=== PATIENT | female | born 1940 | race Caucasian/White ===

== ENCOUNTER 2023-10-31 18:01 | Inpatient (IN) | payer MEDICARE, SELFPAY ==
[~2023-10-31] VITALS: Ht 157.5 cm; Wt 36.0 kg
[2023-10-31 21:10] VITALS: BP 115/57; TEMP 98.8; O2SAT 91
[2023-10-31 21:56] LABS: BASO % 0.1 % (0.0-1.0); HEMATOCRIT 24.2 % (36.0-47.0); HEMOGLOBIN 8.6 g/dl (12.0-15.5); LYMPH # 0.3 10^3/uL (1.5-5.0); MEAN CORPUSCULAR HEMOGLOBIN 35.7 pg (27.0-33.0); MEAN CORPUSCULAR HGB CONC 35.5 g/dl (32.0-36.5); MEAN CORPUSCULAR VOLUME 100.4 fl (80.0-96.0); MONO # 0.3 10^3/uL (0.0-0.8); MONO % 4.2 % (2.0-8.0); NEUTROPHILS # 7.4 10^3/uL (1.5-8.5); NEUTROPHILS % 91.3 % (36.0-66.0); PLATELET COUNT, AUTOMATED 129 10^3/uL (150-450); RED BLOOD COUNT 2.41 10^6/uL (4.00-5.40); WHITE BLOOD COUNT 8.1 10^3/uL (4.0-10.0)
[2023-10-31 22:05] LABS: INR 1.29; PROTHROMBIN TIME 15.7 SECONDS (12.5-14.5)
[2023-10-31 22:18] LABS: ALBUMIN 1.9 G/DL (3.2-5.2); ALKALINE PHOSPHATASE 200 U/L (46-116); ALT/SGPT 23 U/L (7.0-40); AST/SGOT 37 U/L (<34); BILIRUBIN,TOTAL 0.5 MG/DL (0.3-1.2); BLOOD UREA NITROGEN 13 MG/DL (9-23); CALCIUM LEVEL 7.9 MG/DL (8.3-10.6); CARBON DIOXIDE LEVEL > 40.0 MMOL/L (20-31); CHLORIDE LEVEL 74 MMOL/L (98-107); GLOMERULAR FILTRATION RATE > 60.0 (>32); GLUCOSE, FASTING 118 MG/DL (74-106); POTASSIUM SERUM 3.2 MMOL/L (3.5-5.1); SODIUM LEVEL 121 MMOL/L (136-145); TOTAL PROTEIN 5.1 G/DL (5.7-8.2)
[2023-10-31 23:00] VITALS: BP 137/62; TEMP 98.1; O2SAT 99
[2023-10-31 23:10] VITALS: O2SAT 90
[2023-10-31] MEDS ORDERED: NS 1,000 ML IV SCH (23:40)
[2023-11-01] MEDS ORDERED: UNRESOLVED CLARIFICATION ENTRY XX STA (00:03)
[2023-11-01] MEDS ORDERED: ALBUTEROL SULFATE 2.5MG/0.5ML INH NEB SOLN NEB PRN (00:20)
[2023-11-01 00:33] LABS: MAGNESIUM LEVEL 1.4 MG/DL (1.8-2.4)
[2023-11-01] MEDS: SODIUM CHLORIDE HYPERTONIC 3% 4ML NEB SOL INH SCH ×4 (01:31→20:17)
[2023-11-01] MEDS: IPRATROPIUM 0.5MG/ALBUTEROL 2.5MG INH SOL UD 3ML (DUONEB) NEB SCH ×2 (01:31→07:59)
[2023-11-01] MEDS ORDERED: MAG SULF 1GM/100ML (MAG RUN) 1 GM in IV 1 EA IV ONE (02:00)
[2023-11-01] MEDS ORDERED: POTASSIUM CHLORIDE 10MEQ SR TABLET PO ONE ×2 (03:00)
[2023-11-01 03:11] VITALS: BP 123/59; TEMP 98.5; O2SAT 97
[2023-11-01 04:28] LABS: HEMATOCRIT 23.6 % (36.0-47.0); HEMOGLOBIN 8.4 g/dl (12.0-15.5); MEAN CORPUSCULAR HEMOGLOBIN 35.9 pg (27.0-33.0); MEAN CORPUSCULAR HGB CONC 35.6 g/dl (32.0-36.5); MEAN CORPUSCULAR VOLUME 100.9 fl (80.0-96.0); PLATELET COUNT, AUTOMATED 136 10^3/uL (150-450); RED BLOOD COUNT 2.34 10^6/uL (4.00-5.40); WHITE BLOOD COUNT 10.2 10^3/uL (4.0-10.0)
[2023-11-01 04:54] LABS: FERRITIN 259.3 NG/ML (7.3-270.7)
[2023-11-01 04:55] LABS: FOLATE > 24.00 NG/ML (>5.4)
[2023-11-01 05:04] LABS: PROCALCITONIN 0.16 ng/ml
[2023-11-01 05:07] LABS: BLOOD UREA NITROGEN 11 MG/DL (9-23); CALCIUM LEVEL 7.5 MG/DL (8.3-10.6); CARBON DIOXIDE LEVEL > 40.0 MMOL/L (20-31); CHLORIDE LEVEL 75 MMOL/L (98-107); GLOMERULAR FILTRATION RATE > 60.0 (>32); GLUCOSE, FASTING 96 MG/DL (74-106); MAGNESIUM LEVEL 1.9 MG/DL (1.8-2.4); POTASSIUM SERUM 3.6 MMOL/L (3.5-5.1); SODIUM LEVEL 120 MMOL/L (136-145); VITAMIN B12 LEVEL > 2000 PG/ML (211-911)
[2023-11-01] MEDS ORDERED: LevoFLOXacin IV 750 MG in IV 1 EA IV SCH (06:00)
[2023-11-01] MEDS ORDERED: MIRT-10 PO (06:43)
[2023-11-01] MEDS ORDERED: IPRA0.00 NEB (06:43)
[2023-11-01] MEDS ORDERED: COMBAER6 PO (06:43)
[2023-11-01] MEDS ORDERED: MECL-86 PO (06:43)
[2023-11-01] MEDS ORDERED: PRED5TA PO (06:43)
[2023-11-01] MEDS ORDERED: TRIA37.577 PO (06:43)
[2023-11-01] MEDS ORDERED: LEVO1TAB40 PO (06:43)
[2023-11-01] MEDS ORDERED: PANT40TA29 PO (06:43)
[2023-11-01] MEDS ORDERED: HOME MED LIST COMPLETE! XX SCH (06:45)
[2023-11-01 08:00] VITALS: BP 103/52; TEMP 98.6; O2SAT 90
[2023-11-01 08:21] LABS: OSMOLALITY SERUM 247 MOSM/KG (280-301)
[2023-11-01 08:34] LABS: CORTISOL BASELINE 26.1 UG/DL (4.3-22.4)
[2023-11-01 08:37] LABS: THYROID STIMULATING HORMONE 6.974 uIU/ML (0.55-4.78)
[2023-11-01 08:48] LABS: ABG BASE EXCESS 20.9 (-2.0-2.0); ABG HCO3 45.5 MMOL/L (22.0-26.0); ABG PARTIAL PRESSURE CO2 50.8 mmHg (35.0-45.0); ABG PARTIAL PRESSURE O2 58.4 mmHg (75.0-100.0); ABG TOTAL CO2 47.1 MMOL/L (23.0-31.0)
[2023-11-01 08:53] LABS: BLOOD UREA NITROGEN 13 MG/DL (9-23); CALCIUM LEVEL 7.4 MG/DL (8.3-10.6); CARBON DIOXIDE LEVEL > 40.0 MMOL/L (20-31); CHLORIDE LEVEL 77 MMOL/L (98-107); CREATININE FOR GFR 0.38 MG/DL (0.55-1.30); GLOMERULAR FILTRATION RATE > 60.0 (>32); GLUCOSE, FASTING 81 MG/DL (74-106); POTASSIUM SERUM 3.8 MMOL/L (3.5-5.1); SODIUM LEVEL 122 MMOL/L (136-145)
[2023-11-01] MEDS ORDERED: PANTOPRAZOLE 40MG TAB (PROTONIX) PO SCH (09:00)
[2023-11-01] MEDS ORDERED: MECLIZINE 25 MG TABLET PO PRN (10:20)
[2023-11-01] MEDS: MIRTAZAPINE 15 MG TAB PO SCH ×2 (11:22→21:02)
[2023-11-01] MEDS: predniSONE 5 MG TAB PO SCH ×2 (11:22→21:01)
[2023-11-01 11:45] VITALS: BP 114/54; TEMP 98; O2SAT 92
[2023-11-01] MEDS ORDERED: TOLVAPTAN 7.5 MG HALF-TAB PO ONE (12:00)
[2023-11-01 13:07] LABS: BLOOD UREA NITROGEN 13 MG/DL (9-23); CALCIUM LEVEL 7.5 MG/DL (8.3-10.6); CARBON DIOXIDE LEVEL > 40.0 MMOL/L (20-31); CHLORIDE LEVEL 76 MMOL/L (98-107); CREATININE FOR GFR 0.39 MG/DL (0.55-1.30); GLOMERULAR FILTRATION RATE > 60.0 (>32); GLUCOSE, FASTING 91 MG/DL (74-106); POTASSIUM SERUM 3.8 MMOL/L (3.5-5.1); SODIUM LEVEL 117 MMOL/L (136-145)
[2023-11-01] MEDS: PANTOPRAZOLE 40MG VIAL IV SCH (13:16)
[2023-11-01 15:32] VITALS: BP 120/57; TEMP 98.4; O2SAT 93
[2023-11-01] MEDS: ALBUTEROL SULFATE 2.5MG/0.5ML INH NEB SOLN NEB SCH ×2 (16:29→20:17)
[2023-11-01] MEDS: PIPERACILLIN/TAZOBACTAM SOD 2.25 GM in D5W MINI-BAG PLUS 50 ML IV SCH ×2 (17:36→21:18)
[2023-11-01 17:44] LABS: BLOOD UREA NITROGEN 13 MG/DL (9-23); CALCIUM LEVEL 7.7 MG/DL (8.3-10.6); CARBON DIOXIDE LEVEL > 40.0 MMOL/L (20-31); CHLORIDE LEVEL 78 MMOL/L (98-107); GLOMERULAR FILTRATION RATE > 60.0 (>32); GLUCOSE, FASTING 102 MG/DL (74-106); POTASSIUM SERUM 3.9 MMOL/L (3.5-5.1); SODIUM LEVEL 123 MMOL/L (136-145)
[2023-11-01] MEDS ORDERED: VANCOMYCIN INTERMITTENT/PULSE DOSING BY CLINICAL PHARMACIST PER DOSING PROTOCOL XX SCH (18:00)
[2023-11-01] MEDS ORDERED: VANCOMYCIN HCL 750 MG, VIAL MATE ADAPTER 1 EACH in D5W 250 ML IV ONE (18:00)
[2023-11-01 19:48] VITALS: BP 126/58; TEMP 97; O2SAT 98
[2023-11-01] MEDS: HEPARIN SOD (PORCINE) 5000UNITS/ML 1ML VIAL/SYRINGE SQ SCH (21:02)
[2023-11-01] MEDS: RAMELTEON 8 MG TAB (ROZEREM) PO PRN (21:18)
[2023-11-02] VITALS: BP 105/53; TEMP 97.9; O2SAT 91
[2023-11-02 00:21] LABS: BLOOD UREA NITROGEN 11 MG/DL (9-23); CALCIUM LEVEL 7.7 MG/DL (8.3-10.6); CARBON DIOXIDE LEVEL > 40.0 MMOL/L (20-31); CHLORIDE LEVEL 79 MMOL/L (98-107); CREATININE FOR GFR 0.42 MG/DL (0.55-1.30); GLOMERULAR FILTRATION RATE > 60.0 (>32); GLUCOSE, FASTING 117 MG/DL (74-106); POTASSIUM SERUM 3.5 MMOL/L (3.5-5.1); SODIUM LEVEL 123 MMOL/L (136-145)
[2023-11-02 03:50] VITALS: BP 121/56; TEMP 97.9; O2SAT 99
[2023-11-02] MEDS: PIPERACILLIN/TAZOBACTAM SOD 2.25 GM in D5W MINI-BAG PLUS 50 ML IV SCH ×4 (04:00→23:30)
[2023-11-02 05:19] LABS: BASO % 0.1 % (0.0-1.0); HEMATOCRIT 24.3 % (36.0-47.0); HEMOGLOBIN 8.4 g/dl (12.0-15.5); LYMPH # 0.3 10^3/uL (1.5-5.0); MEAN CORPUSCULAR HEMOGLOBIN 35.7 pg (27.0-33.0); MEAN CORPUSCULAR HGB CONC 34.6 g/dl (32.0-36.5); MEAN CORPUSCULAR VOLUME 103.4 fl (80.0-96.0); MONO # 0.5 10^3/uL (0.0-0.8); MONO % 4.4 % (2.0-8.0); NEUTROPHILS # 10.3 10^3/uL (1.5-8.5); PLATELET COUNT, AUTOMATED 102 10^3/uL (150-450); RED BLOOD COUNT 2.35 10^6/uL (4.00-5.40); WHITE BLOOD COUNT 11.2 10^3/uL (4.0-10.0)
[2023-11-02 05:44] LABS: IMMUNOGLOBULIN A 538.6 MG/DL (40-350); IMMUNOGLOBULIN M 96.1 MG/DL (50-300)
[2023-11-02 05:46] LABS: IMMUNOGLOBULIN E 119.4 IU/ML (0-378)
[2023-11-02 05:48] LABS: BLOOD UREA NITROGEN 10 MG/DL (9-23); CALCIUM LEVEL 7.5 MG/DL (8.3-10.6); CARBON DIOXIDE LEVEL > 40.0 MMOL/L (20-31); CHLORIDE LEVEL 82 MMOL/L (98-107); CREATININE FOR GFR 0.38 MG/DL (0.55-1.30); GLOMERULAR FILTRATION RATE > 60.0 (>32); GLUCOSE, FASTING 125 MG/DL (74-106); POTASSIUM SERUM 3.2 MMOL/L (3.5-5.1); SODIUM LEVEL 127 MMOL/L (136-145)
[2023-11-02] MEDS ORDERED: VANCOMYCIN HCL 1,000 MG, VIAL MATE ADAPTER 1 EACH in D5W 250 ML IV ONE (06:00)
[2023-11-02 06:06] LABS: RHEUMATOID FACTOR QUANT 610.9 IU/ML (<14)
[2023-11-02] MEDS ORDERED: POTASSIUM CHLORIDE 10MEQ SR TABLET PO ONE (07:05)
[2023-11-02] MEDS: ALBUTEROL SULFATE 2.5MG/0.5ML INH NEB SOLN NEB SCH ×4 (08:00→20:05)
[2023-11-02] MEDS: SODIUM CHLORIDE HYPERTONIC 3% 4ML NEB SOL INH SCH ×4 (08:00→20:05)
[2023-11-02 08:48] VITALS: BP 95/50; TEMP 96.9; O2SAT 90
[2023-11-02] MEDS: MIRALAX *UNIT DOSE* 17GM PACKET PO SCH (09:00)
[2023-11-02] MEDS: POTASSIUM CHLORIDE 10MEQ SR TABLET PO SCH ×3 (09:00→21:00)
[2023-11-02] MEDS: SENNA 8.6 MG TAB (SENOKOT) PO SCH (09:00)
[2023-11-02] MEDS: HEPARIN SOD (PORCINE) 5000UNITS/ML 1ML VIAL/SYRINGE SQ SCH ×2 (09:24→21:03)
[2023-11-02] MEDS: PANTOPRAZOLE 40MG VIAL IV SCH (09:24)
[2023-11-02] MEDS: MIRTAZAPINE 15 MG TAB PO SCH ×2 (09:24→21:03)
[2023-11-02] MEDS: predniSONE 5 MG TAB PO SCH ×2 (09:24→21:03)
[2023-11-02] MEDS: KCL 10MEQ/100ML SWI (KRUN) 10 MEQ in IV 1 EA IV SCH ×2 (09:45→12:13)
[2023-11-02 11:25] VITALS: BP 113/56; TEMP 98.4; O2SAT 91
[2023-11-02 12:30] LABS: BLOOD UREA NITROGEN 9 MG/DL (9-23); CALCIUM LEVEL 7.5 MG/DL (8.3-10.6); CARBON DIOXIDE LEVEL > 40.0 MMOL/L (20-31); CHLORIDE LEVEL 80 MMOL/L (98-107); CREATININE FOR GFR 0.37 MG/DL (0.55-1.30); GLOMERULAR FILTRATION RATE > 60.0 (>32); GLUCOSE, FASTING 165 MG/DL (74-106); POTASSIUM SERUM 3.6 MMOL/L (3.5-5.1); SODIUM LEVEL 123 MMOL/L (136-145)
[2023-11-02 16:38] VITALS: BP 97/56; TEMP 99; O2SAT 96
[2023-11-02] MEDS ORDERED: ISOVUE-370 76% 100ML VIAL As Ordered ONE (17:04)
[2023-11-02 17:43] LABS: BLOOD UREA NITROGEN 12 MG/DL (9-23); CALCIUM LEVEL 8.3 MG/DL (8.3-10.6); CARBON DIOXIDE LEVEL > 40.0 MMOL/L (20-31); CHLORIDE LEVEL 80 MMOL/L (98-107); CREATININE FOR GFR 0.42 MG/DL (0.55-1.30); GLOMERULAR FILTRATION RATE > 60.0 (>32); GLUCOSE, FASTING 113 MG/DL (74-106); POTASSIUM SERUM 3.8 MMOL/L (3.5-5.1); SODIUM LEVEL 125 MMOL/L (136-145)
[2023-11-02] MEDS ORDERED: TOLVAPTAN 7.5 MG HALF-TAB PO ONE (18:00)
[2023-11-02 20:00] VITALS: BP 91/51; TEMP 98.5; O2SAT 98
[2023-11-02] MEDS ORDERED: VANCOMYCIN HCL 500 MG in D5W MINI-BAG PLUS 100 ML IV ONE (20:00)
[2023-11-02 23:56] LABS: BLOOD UREA NITROGEN 11 MG/DL (9-23); CALCIUM LEVEL 7.7 MG/DL (8.3-10.6); CARBON DIOXIDE LEVEL > 40.0 MMOL/L (20-31); CHLORIDE LEVEL 83 MMOL/L (98-107); GLOMERULAR FILTRATION RATE > 60.0 (>32); GLUCOSE, FASTING 111 MG/DL (74-106); POTASSIUM SERUM 3.8 MMOL/L (3.5-5.1); SODIUM LEVEL 124 MMOL/L (136-145)
[2023-11-03] VITALS: BP 120/56; TEMP 97.8; O2SAT 92
[2023-11-03 04:00] VITALS: BP 108/69; TEMP 97.5; O2SAT 98
[2023-11-03] MEDS: PIPERACILLIN/TAZOBACTAM SOD 2.25 GM in D5W MINI-BAG PLUS 50 ML IV SCH ×4 (05:28→23:35)
[2023-11-03] MEDS ORDERED: LevoFLOXacin IV 750 MG in IV 1 EA IV SCH (06:00)
[2023-11-03 06:03] LABS: BASO % 0.1 % (0.0-1.0); EOS % 0.3 % (0.0-3.0); HEMATOCRIT 25.5 % (36.0-47.0); HEMOGLOBIN 8.6 g/dl (12.0-15.5); LYMPH # 0.4 10^3/uL (1.5-5.0); LYMPH % 3.8 % (24.0-44.0); MEAN CORPUSCULAR HEMOGLOBIN 35.7 pg (27.0-33.0); MEAN CORPUSCULAR HGB CONC 33.7 g/dl (32.0-36.5); MEAN CORPUSCULAR VOLUME 105.8 fl (80.0-96.0); MONO # 0.6 10^3/uL (0.0-0.8); MONO % 5.3 % (2.0-8.0); NEUTROPHILS # 9.4 10^3/uL (1.5-8.5); RED BLOOD COUNT 2.41 10^6/uL (4.00-5.40); WHITE BLOOD COUNT 10.4 10^3/uL (4.0-10.0)
[2023-11-03 06:27] LABS: BLOOD UREA NITROGEN 10 MG/DL (9-23); CALCIUM LEVEL 7.9 MG/DL (8.3-10.6); CARBON DIOXIDE LEVEL > 40.0 MMOL/L (20-31); CHLORIDE LEVEL 85 MMOL/L (98-107); CREATININE FOR GFR 0.44 MG/DL (0.55-1.30); GLOMERULAR FILTRATION RATE > 60.0 (>32); GLUCOSE, FASTING 98 MG/DL (74-106); POTASSIUM SERUM 3.5 MMOL/L (3.5-5.1); SODIUM LEVEL 125 MMOL/L (136-145)
[2023-11-03 06:59] LABS: PLATELET COUNT, AUTOMATED 90 10^3/uL (150-450)
[2023-11-03] MEDS: SODIUM CHLORIDE HYPERTONIC 3% 4ML NEB SOL INH SCH ×4 (07:33→20:22)
[2023-11-03] MEDS: ALBUTEROL SULFATE 2.5MG/0.5ML INH NEB SOLN NEB SCH ×4 (07:33→20:21)
[2023-11-03 07:56] VITALS: BP 108/50; TEMP 98.1; O2SAT 95
[2023-11-03] MEDS: POTASSIUM CHLORIDE 10MEQ SR TABLET PO SCH ×3 (09:24→20:49)
[2023-11-03] MEDS: predniSONE 5 MG TAB PO SCH ×2 (09:24→20:49)
[2023-11-03] MEDS: SENNA 8.6 MG TAB (SENOKOT) PO SCH (09:25)
[2023-11-03] MEDS: PANTOPRAZOLE 40MG VIAL IV SCH (09:25)
[2023-11-03] MEDS: HEPARIN SOD (PORCINE) 5000UNITS/ML 1ML VIAL/SYRINGE SQ SCH (09:25)
[2023-11-03] MEDS: MIRTAZAPINE 15 MG TAB PO SCH ×2 (09:25→20:49)
[2023-11-03] MEDS: MIRALAX *UNIT DOSE* 17GM PACKET PO SCH (09:26)
[2023-11-03 11:31] VITALS: BP 131/61; TEMP 97.9; O2SAT 94
[2023-11-03 12:50] LABS: BLOOD UREA NITROGEN 12 MG/DL (9-23); CALCIUM LEVEL 8.4 MG/DL (8.3-10.6); CARBON DIOXIDE LEVEL > 40.0 MMOL/L (20-31); CHLORIDE LEVEL 85 MMOL/L (98-107); CREATININE FOR GFR 0.39 MG/DL (0.55-1.30); GLOMERULAR FILTRATION RATE > 60.0 (>32); GLUCOSE, FASTING 123 MG/DL (74-106); POTASSIUM SERUM 3.9 MMOL/L (3.5-5.1); SODIUM LEVEL 130 MMOL/L (136-145)
[2023-11-03 13:08] LABS: MYCOPLASMA PNEUMONIAE IgG <100 U/mL (0-99); MYCOPLASMA PNEUMONIAE IgM <770 U/mL (0-769)
[2023-11-03] MEDS ORDERED: TOLVAPTAN 7.5 MG HALF-TAB PO ONE (14:00)
[2023-11-03 15:42] VITALS: BP 96/51; TEMP 98.9; O2SAT 100
[2023-11-03] MEDS ORDERED: RIVAROXABAN 10MG TAB (XARELTO) PO SCH (18:00)
[2023-11-03 18:19] LABS: BLOOD UREA NITROGEN 14 MG/DL (9-23); CARBON DIOXIDE LEVEL > 40.0 MMOL/L (20-31); CHLORIDE LEVEL 85 MMOL/L (98-107); CREATININE FOR GFR 0.42 MG/DL (0.55-1.30); GLOMERULAR FILTRATION RATE > 60.0 (>32); GLUCOSE, FASTING 111 MG/DL (74-106); POTASSIUM SERUM 3.9 MMOL/L (3.5-5.1); SODIUM LEVEL 127 MMOL/L (136-145)
[2023-11-03 20:00] VITALS: BP 116/60; TEMP 97.5; O2SAT 98
[2023-11-03 20:39] LABS: BLOOD UREA NITROGEN 14 MG/DL (9-23); CALCIUM LEVEL 8.4 MG/DL (8.3-10.6); CARBON DIOXIDE LEVEL > 40.0 MMOL/L (20-31); CHLORIDE LEVEL 87 MMOL/L (98-107); CREATININE FOR GFR 0.41 MG/DL (0.55-1.30); GLOMERULAR FILTRATION RATE > 60.0 (>32); GLUCOSE, FASTING 106 MG/DL (74-106); POTASSIUM SERUM 4.3 MMOL/L (3.5-5.1); SODIUM LEVEL 131 MMOL/L (136-145)
[2023-11-03] MEDS: RAMELTEON 8 MG TAB (ROZEREM) PO PRN (20:49)
[2023-11-04] VITALS: BP 112/58; TEMP 97.7; O2SAT 98
[2023-11-04 00:33] LABS: BLOOD UREA NITROGEN 12 MG/DL (9-23); CALCIUM LEVEL 8.3 MG/DL (8.3-10.6); CARBON DIOXIDE LEVEL > 40.0 MMOL/L (20-31); CHLORIDE LEVEL 88 MMOL/L (98-107); CREATININE FOR GFR 0.39 MG/DL (0.55-1.30); GLOMERULAR FILTRATION RATE > 60.0 (>32); GLUCOSE, FASTING 131 MG/DL (74-106); POTASSIUM SERUM 4.4 MMOL/L (3.5-5.1); SODIUM LEVEL 131 MMOL/L (136-145)
[2023-11-04 05:28] LABS: BASO % 0.1 % (0.0-1.0); EOS % 0.2 % (0.0-3.0); HEMATOCRIT 25.1 % (36.0-47.0); HEMOGLOBIN 8.2 g/dl (12.0-15.5); LYMPH # 0.4 10^3/uL (1.5-5.0); LYMPH % 3.8 % (24.0-44.0); MEAN CORPUSCULAR HGB CONC 32.7 g/dl (32.0-36.5); MEAN CORPUSCULAR VOLUME 107.3 fl (80.0-96.0); MONO # 0.6 10^3/uL (0.0-0.8); MONO % 5.5 % (2.0-8.0); NEUTROPHILS # 9.1 10^3/uL (1.5-8.5); NEUTROPHILS % 89.7 % (36.0-66.0); PLATELET COUNT, AUTOMATED 88 10^3/uL (150-450); RED BLOOD COUNT 2.34 10^6/uL (4.00-5.40); WHITE BLOOD COUNT 10.2 10^3/uL (4.0-10.0)
[2023-11-04 05:34] VITALS: BP 102/51; TEMP 97.4; O2SAT 100
[2023-11-04] MEDS: PIPERACILLIN/TAZOBACTAM SOD 2.25 GM in D5W MINI-BAG PLUS 50 ML IV SCH ×2 (05:52→10:50)
[2023-11-04 05:58] LABS: BLOOD UREA NITROGEN 13 MG/DL (9-23); CALCIUM LEVEL 8.2 MG/DL (8.3-10.6); CARBON DIOXIDE LEVEL > 40.0 MMOL/L (20-31); CHLORIDE LEVEL 88 MMOL/L (98-107); CREATININE FOR GFR 0.36 MG/DL (0.55-1.30); GLOMERULAR FILTRATION RATE > 60.0 (>32); GLUCOSE, FASTING 110 MG/DL (74-106); POTASSIUM SERUM 4.7 MMOL/L (3.5-5.1); SODIUM LEVEL 133 MMOL/L (136-145)
[2023-11-04 07:20] VITALS: BP 98/55; TEMP 97.7; O2SAT 93
[2023-11-04] MEDS: ALBUTEROL SULFATE 2.5MG/0.5ML INH NEB SOLN NEB SCH ×3 (07:37→15:12)
[2023-11-04] MEDS: SODIUM CHLORIDE HYPERTONIC 3% 4ML NEB SOL INH SCH ×3 (07:38→15:13)
[2023-11-04 08:11] LABS: M003-IGE ASPERGILLUS fumigatus 1.71 kU/L (Class III)
[2023-11-04] MEDS: PANTOPRAZOLE 40MG VIAL IV SCH (10:48)
[2023-11-04] MEDS: MIRALAX *UNIT DOSE* 17GM PACKET PO SCH (10:48)
[2023-11-04] MEDS: SENNA 8.6 MG TAB (SENOKOT) PO SCH (10:49)
[2023-11-04] MEDS: predniSONE 5 MG TAB PO SCH (10:49)
[2023-11-04] MEDS: MIRTAZAPINE 15 MG TAB PO SCH (10:49)
[2023-11-04] MEDS: POTASSIUM CHLORIDE 10MEQ SR TABLET PO SCH (10:49)
[2023-11-04 11:54] LABS: BLOOD UREA NITROGEN 14 MG/DL (9-23); CALCIUM LEVEL 8.7 MG/DL (8.3-10.6); CARBON DIOXIDE LEVEL > 40.0 MMOL/L (20-31); CHLORIDE LEVEL 88 MMOL/L (98-107); CREATININE FOR GFR 0.36 MG/DL (0.55-1.30); GLOMERULAR FILTRATION RATE > 60.0 (>32); GLUCOSE, FASTING 145 MG/DL (74-106); POTASSIUM SERUM 4.9 MMOL/L (3.5-5.1); SODIUM LEVEL 132 MMOL/L (136-145)
[2023-11-04 11:59] VITALS: BP 138/62; TEMP 97.5; O2SAT 94
[2023-11-04 17:08] LABS: BODY FLUID CULTURE Not indicated. (.); LEGIONELLA ANTIGEN URINE Negative (Negative); ORGANISM ID Not indicated. (.); SPECIMEN SOURCE Urine (.); URINE STREP PNEUMONIAE ANTIGEN Negative (Negative)
[2023-11-06 13:10] LABS: CYCLIC CITRULLINATED PEPTIDE > 250 units (0-19); SSA SJOGRENS A <0.2 AI (0.0-0.9); SSB SJOGRENS B <0.2 AI (0.0-0.9)
== END 2023-11-04 16:47 | disposition home health service (06) | DRG 643 ==
LOC: EDBD → M PCU 18:06 → ENRESERV 20:11
PROVIDERS: ADMIT Student in an Organized Health Care Education/Training Program; ATTEND Student in an Organized Health Care Education/Training Program
DX: E22.2 Syndrome of inappropriate secretion of antidiuretic hormone (principal); J15.69 Pneumonia due to other Gram-negative bacteria; E43 Unspecified severe protein-calorie malnutrition; J47.0 Bronchiectasis with acute lower respiratory infection; R64 Cachexia; J96.11 Chronic respiratory failure with hypoxia; E87.3 Alkalosis; E87.29 Other acidosis; Z68.1 Body mass index [BMI] 19.9 or less, adult; R18.8 Other ascites; F41.9 Anxiety disorder, unspecified; D69.6 Thrombocytopenia, unspecified; J45.909 Unspecified asthma, uncomplicated; I10 Essential (primary) hypertension; M06.9 Rheumatoid arthritis, unspecified; J47.9 Bronchiectasis, uncomplicated; F39 Unspecified mood [affective] disorder; I35.0 Nonrheumatic aortic (valve) stenosis; D64.9 Anemia, unspecified; K76.1 Chronic passive congestion of liver; K21.9 Gastro-esophageal reflux disease without esophagitis; J84.10 Pulmonary fibrosis, unspecified; R62.7 Adult failure to thrive; M85.80 Other specified disorders of bone density and structure, unspecified site; R63.6 Underweight; E87.6 Hypokalemia; L89.152 Pressure ulcer of sacral region, stage 2; E83.42 Hypomagnesemia; D75.89 Other specified diseases of blood and blood-forming organs; K63.89 Other specified diseases of intestine; Z88.2 Allergy status to sulfonamides; Z88.5 Allergy status to narcotic agent; Z88.8 Allergy status to other drugs, medicaments and biological substances; Z79.899 Other long term (current) drug therapy; K57.90 Diverticulosis of intestine, part unspecified, without perforation or abscess without bleeding; Z99.81 Dependence on supplemental oxygen